=== PATIENT | female | born 1980 | race Caucasian/White ===

== ENCOUNTER → 2018-01-28 | Outpatient (CLI) | payer BC ==
[~2018-01-28] MED LIST: CYCL10TA9 PO; FLUO40CA PO; HYDR1TAB8 OP; LEVO500T69 PO; LVT.025T PO; METR500T PO; NAPR-243 PO; NITR-65 PO; SPRINTEC
--- NOTE | 2018-01-28 10:14 | Diagnostic Imaging Report ---
PROCEDURE: MRI lumbar spine. TECHNIQUE: A multiplanar/multisequence MRI of the lumbar spine was performed without contrast. INDICATION: Back injury on 01/24/2018. Complaining of low back pain and left leg pain as well as numbness and tingling. COMPARISON: Prior MRI of the lumbar spine from 10/11/2012. FINDINGS: The curvature and alignment of the lumbar spine are normal. The vertebral body heights are maintained. The marrow signal intensity is unremarkable. No compression fracture or geographic marrow lesion is seen. There is degenerative disc disease and desiccation at the L5-S1 level, similar to the prior exam. The conus is unremarkable at the T12-L1 level. T12-L1: No central canal or neuroforaminal stenosis is identified. L1-2: Unremarkable. L2-3: There is mild ligamentous thickening present and mild degenerative changes of the facets; however, the central canal remains widely patent. The neuroforamina are patent. L3-4: There is mild ligamentous thickening and facet changes; however, the central canal remains widely patent. No neuroforaminal stenosis is seen. L4-5: There is mild annular bulging present flattening the ventral thecal sac. There is also ligamentous thickening as well as facet changes present. The AP dimensions of the thecal sac remain within normal limits. There is narrowing of the lateral recesses bilaterally. There also appears to be moderate narrowing of the neuroforamina bilaterally. L5-S1: The asymmetric left posterolateral broad-based disc/osteophyte complex appears similar to the prior exam. This again appears to abut the left S1 nerve root origin as well as significantly narrow the left lateral recess. There is mild narrowing of the left neuroforamen as well. The right neuroforamen and lateral recess are patent. The central canal is patent. The paraspinous structures are unremarkable. IMPRESSION: Lower lumbar spondylosis and facet arthropathy, similar to the prior study dating back to 10/11/2012. There is continued bilateral lateral recess narrowing at L4-5 as well as bilateral neuroforaminal narrowing. Asymmetric bulging of the disc at the L5-S1 level is similar to the prior exam abutting the left S1 nerve root origin and narrowing the left lateral recess and left neuroforamen. No central canal stenosis is identified. Dictated by: Dictated on workstation # [id number]
== END ==
LOC: RAD 09:05
PROVIDERS: ATTEND Nurse Practitioner Family
DX: M48.07 Spinal stenosis, lumbosacral region (principal); M47.816 Spondylosis without myelopathy or radiculopathy, lumbar region; M51.27 Other intervertebral disc displacement, lumbosacral region; M46.86 Other specified inflammatory spondylopathies, lumbar region
CPT/HCPCS: 72148

== ENCOUNTER 2018-04-01 15:41 | Outpatient (RCR) | payer BC | END 2018-04-15 16:35 | disposition home or self-care (01) | PROVIDERS: ATTEND Family Medicine | DX: M51.16 Intervertebral disc disorders with radiculopathy, lumbar region (principal) ==